=== PATIENT | female | born 1970 | race Caucasian/White ===

== ENCOUNTER 2016-09-20 13:48 | Emergency (ER) | payer SELFPAY ==
[~2016-09-20] VITALS: Ht 160 cm; Wt 62.1 kg
[2016-09-20 15:12] LABS: HEMATOCRIT 35.2 % (36.0-46.0); MCH 25.9 PG (29.0-34.0); MCHC 33.2 G/DL (30.0-36.0); MCV 77.9 FL (83-99); MEAN PLAT.VOLUME 11.3 uM^3 (9.5-12.4); PLATELET COUNT 416 K/uL (156-360); RBC DIS.WIDTH-CV 14.6 % (11.8-14.6); RBC DIS.WIDTH-SD 39.8 % (39-53); RED BLOOD COUNT 4.52 M/uL (3.80-5.20); WHITE BLOOD COUNT 6.5 K/uL (4.1-10.2)
[2016-09-20 15:24] LABS: CHLORIDE 108 mEq/L (99-109); POTASSIUM 4.2 mEq/L (3.7-5.4); SODIUM 141 mEq/L (136-147)
[2016-09-20 15:26] LABS: GLUCOSE 107 mg/dL (70-99)
[2016-09-20 15:27] LABS: ANION GAP 11 MEQ/L (2-14)
[2016-09-20 15:30] LABS: GFR ESTIMATE (CALCULATED) > 59 mL/min/; UREA NITROGEN (BUN) 19 mg/dL (9-23)
[2016-09-20 15:38] LABS: QUANTITATIVE HCG < 4.0 MIU/ML
[2016-09-20] MEDS ORDERED: NORCO 5/3251 TABLET PO (17:46)
[2016-09-20 18:11] VITALS: BP 155/75
== END 2016-09-20 18:12 | disposition home or self-care (01) ==
LOC: EME 13:48
PROVIDERS: Nurse Practitioner Family
PROC: 0HQEXZZ Repair Left Lower Arm Skin, External Approach (ICD-10-PCS; principal; 2016-09-20)
DX: S61.512A Laceration without foreign body of left wrist, initial encounter (principal); W07.XXXA Fall from chair, initial encounter; W25.XXXA Contact with sharp glass, initial encounter; Y92.9 Unspecified place or not applicable; Z88.0 Allergy status to penicillin
CPT/HCPCS: 80048; 84702; 85027; 86850; 86900; 86901; 99281; 99285; J0696; J7030; J7050